=== PATIENT | male | born 1950 | race Caucasian/White ===

== ENCOUNTER → 2018-05-31 | Outpatient (CLI) | payer MEDICARE ==
[2018-05-31 13:33] LABS: Basophils # (A) 0.1 k/uL (0-0.2); Basophils % (A) 1 %; Eosinophils # (A) 0.1 k/uL (0-0.7); Eosinophils % (A) 2 %; HCT 47.2 % (39.0-53.0); HGB 15.2 gm/dL (13.0-17.5); Lymphocytes # (A) 1.4 k/uL (1.0-4.8); Lymphocytes % (A) 21 %; MCH 29.7 pg (25.0-35.0); MCHC 32.3 g/dL (31.0-37.0); Monocytes # (A) 0.3 k/uL (0-1.0); Monocytes % (A) 4 %; Neutrophils # (A) 4.8 k/uL (1.3-7.7); Neutrophils % (A) 70 %; Platelet Count 210 k/uL (150-450); RBC 5.13 m/uL (4.30-5.90); RDW 13.1 % (11.5-15.5); WBC 6.9 k/uL (3.8-10.6)
[2018-05-31 13:38] LABS: Appearance,Urine Clear (Clear); Bilirubin,Urine Negative (Negative); Blood,Urine Negative (Negative); Color,Urine Yellow; Glucose,Urine (UA) Negative (Negative); Ketones,Urine Negative (Negative); Leukocyte Esterase,Urine Negative (Negative); Nitrite,Urine Negative (Negative); Protein,Urine Negative (Negative); Specific Gravity,Urine 1.015 (1.001-1.035); Urobilinogen,Urine <2.0 mg/dL (<2.0)
[2018-05-31 13:57] LABS: Calcium 10.1 mg/dL (8.4-10.2); Potassium 5.4 mmol/L (3.5-5.1)
== END ==
LOC: LABPAT 12:01
PROVIDERS: ATTEND Urology
DX: Z01.812 Encounter for preprocedural laboratory examination (principal); N40.1 Benign prostatic hyperplasia with lower urinary tract symptoms; E78.5 Hyperlipidemia, unspecified; R35.0 Frequency of micturition; R31.29 Other microscopic hematuria; R53.83 Other fatigue
CPT/HCPCS: 36415; 80048; 81003; 85025; 87086

== ENCOUNTER 2018-06-07 08:00 | Inpatient (IN) | payer BC, MEDICARE ==
[2018-05-31 10:48] VITALS: BMI 28.5
--- NOTE | 2018-06-06 15:54 | P.GSHP ---
History of Present Illness H&P Date: 06/06/18 Pleasant 67 yo with chronic bph symptoms and both tamsulosin and finasterie with worsening of his LUTS. He had a trus identifying a 140 ml prostate He was offerd SPP vs greenlight laser turp He has chosen SPP and comes for this procedure The risks and complications have been discussed. - Constitutional Constitutional: Denies chills, Denies fever - EENT Eyes: denies blurred vision, denies pain Ears, nose, mouth and throat: Denies headache, Denies sore throat - Cardiovascular Cardiovascular: Denies chest pain, Denies shortness of breath - Respiratory Respiratory: Denies cough, Denies 7 - Gastrointestinal Gastrointestinal: Denies abdominal pain, Denies diarrhea, Denies nausea, Denies vomiting - Genitourinary (Female) Genitourinary: Denies dysuria, Denies hematuria - Genitourinary (Male) Genitourinary: Denies dysuria, Denies hematuria - Musculoskeletal Musculoskeletal: Denies myalgias - Integumentary Integumentary: Denies pruritus, Denies rash - Neurological Neurological: Denies numbness, Denies weakness - Psychiatric Psychiatric: Denies anxiety, Denies depression - Endocrine Endocrine: Denies fatigue, Denies weight change Past Medical History Past Medical History: GERD/Reflux, Prostate Disorder Additional Past Medical History / Comment(s): ENLARGED PROSTATE, kidney stones History of Any Multi-Drug Resistant Organisms: None Reported Past Surgical History: Joint Replacement, Orthopedic Surgery Additional Past Surgical History / Comment(s): RIGHT TOTAL KNEE, meniscus repair lt knee Past Anesthesia/Blood Transfusion Reactions: No Reported Reaction Smoking Status: Never smoker - Past Family History Father Family Medical History: Cancer Medications and Allergies Home Medications Medication Instructions Recorded Confirmed Type Tamsulosin HCl [Flomax] 0.4 mg PO DAILY 03/14/15 05/31/18 History Omeprazole [PriLOSEC] 20 mg PO AC-BRKFST 04/18/15 05/31/18 History Finasteride (Unknown Dose) 1 tab PO DAILY 05/31/18 05/31/18 History Ibuprofen [Motrin] 400 mg PO DAILY PRN 05/31/18 05/31/18 History Allergies Allergy/AdvReac Type Severity Reaction Status Date / Time metronidazole [From Flagyl] Allergy Rash/Hives Verified 05/31/18 10:41 Surgical - Exam - General well developed, well nourished - Eyes PERRL - ENT no hearing loss - Neck trachea midline - Respiratory normal expansion, normal respiratory effort - Cardiovascular Rhythm: regular - Abdomen Abdomen: soft, non tender - Genitourinary Prostate very large on digital exam but benign normal penis with no external lesions, testicles present - Integumentary no rash, no growths - Neurologic normal coordination - Musculoskeletal normal gait, normal posture - Psychiatric oriented to time, oriented to person, oriented to place, speech is normal, memory intact Assessment and Plan Assessment: Impression: BPH with obstruction, large prostate. Plan: Supra pubic prostatectomy
[~2018-06-07 08:00] MED LIST: ceFAZolin IN SWFI 2 GM/20 ML SYRINGE IVP ONE
[2018-06-07] MEDS ORDERED: LIDOCAINE 1% 20 ML VIAL (10MG/ML) FOR IV START INTRADERMA ONE (08:42)
[2018-06-07] MEDS ORDERED: LACTATED RINGERS 1,000 ML IV ONE ×3 (08:43→12:27)
[2018-06-07] MEDS ORDERED: ONDANSETRON 4 MG/2 ML VIAL IVP ONE ×2 (09:20→14:59)
[2018-06-07] MEDS ORDERED: DEXAMETHASONE SOD PHOS (MDV) 100 MG/10 ML VIAL IVP ONE (09:20)
[2018-06-07] MEDS ORDERED: ePHEDrine SULFATE/0.9% NACL/PF 50 MG/5 ML SYRINGE IV ONE (11:33)
[2018-06-07] MEDS ORDERED: fentaNYL (PF) 50 MCG/ML 2 ML AMP ONE (11:33)
[2018-06-07] MEDS ORDERED: MORPHINE SULFATE (PF) 0.3 MG/0.3 ML SYR ONE (11:33)
[2018-06-07] MEDS ORDERED: MIDAZOLAM 2 MG/2 ML VIAL ONE (11:33)
[2018-06-07] MEDS ORDERED: diphenhydrAMINE 25 MG CAP PO PRN (12:31)
[2018-06-07] MEDS ORDERED: ONDANSETRON 4 MG/2 ML VIAL IVP PRN (12:31)
[2018-06-07] MEDS ORDERED: HYDROmorphone 1 MG/ML 1 ML SYRINGE IVP PRN (12:31)
[2018-06-07] MEDS ORDERED: NALOXONE 0.4 MG/ML 1 ML VIAL IV PRN (12:31)
[2018-06-07] MEDS ORDERED: MORPHINE SULFATE 2 MG/ML SYRINGE IVP PRN (12:52)
--- NOTE | 2018-06-07 12:57 | P.OP ---
Date of Procedure: 06/07/18 Preoperative Diagnosis: BPH with obstruction, large prostate Postoperative Diagnosis: Same Procedure(s) Performed: Suprapubic prostatectomy Anesthesia: MAC, spinal Surgeon: Jose Roberto Bales Provider Service Representative #1: Adriano Elizabeth Estimated Blood Loss (ml): 200 Pathology: other (Prostate) Condition: stable Disposition: PACU Indications for Procedure: The patient is 67. He has marked urinary outlet obstructive symptoms. He has been on tamsulosin and finasteride. His prostate measures 140 mL. He wishes something further to be done. He's been given a variety of treatment options is chosen a suprapubic prostatectomy Description of Procedure: The patient is brought to the operating suite. He is given a spinal anesthetic as well as Duramorph. He is given IV sedation. He is prepped and draped sterilely. A midline suprapubic incision is made. The rectus fascia is opened in the midline. The prevesical space is developed. The bladder is opened in the midline. Urine is back to 80 from the bladder. The prostate is inspected and there is a very large intravesical portion. Ureteral orifices are identified. With the electrocautery I make a circumferential incision around the bladder neck. I then pass my finger into the urethra and cracked to the anterior commissure. Then enucleate out the prostate completely. I then reapproximate the bladder and bladder neck mucosa to the prostatic mucosa. I do a small amount of electrocautery cauterization. I introduced a 20-[place] Island[place] catheter with 30 mL balloon into the urethra. I put tension on the bladder neck. This controls the bleeding nicely. I then through separate stab incision place another 20-[place] Islander catheter through the abdominal wall into the bladder. This is a 5 mL balloon. The bladder is closed in 2 layers of 3 and 2- 0 Vicryl. The bladder irrigates freely. Edwin-Prescott drain is brought through separate stab incision. The rectus fascias closed with double-stranded #1 PDS. The skin is stapled. The procedure there is irrigation through the suprapubic tube out the urethral catheter. Blood loss is approximately 200 mL. The patient tolerated the procedure well and will be placed in the hospital postoperatively.
[2018-06-07] MEDS ORDERED: BACITRACIN OINT 1 EACH PACKET TOPICAL ONE (13:00)
[2018-06-07] MEDS ORDERED: BELLADONNA-OPIUM 16.2-60 MG 1 EACH SUPP RECTAL ONE (14:33)
[2018-06-07 15:05] LABS: Basophils % (A) 1 %; Eosinophils # (A) 0.1 k/uL (0-0.7); Eosinophils % (A) 1 %; HCT 42.5 % (39.0-53.0); HGB 13.7 gm/dL (13.0-17.5); Lymphocytes # (A) 0.5 k/uL (1.0-4.8); Lymphocytes % (A) 6 %; MCH 29.9 pg (25.0-35.0); MCHC 32.2 g/dL (31.0-37.0); MCV 92.7 fL (80.0-100.0); Mean Platelet Volume 7.9; Monocytes # (A) 0.1 k/uL (0-1.0); Monocytes % (A) 2 %; Neutrophils # (A) 7.7 k/uL (1.3-7.7); Neutrophils % (A) 91 %; Platelet Count 191 k/uL (150-450); RBC 4.59 m/uL (4.30-5.90); RDW 12.7 % (11.5-15.5); WBC 8.5 k/uL (3.8-10.6)
[2018-06-07] MEDS: BELLADONNA-OPIUM 16.2-60 MG 1 EACH SUPP RECTAL PRN (15:15)
[2018-06-07] MEDS ORDERED: [UNRECOGNIZED DRUG - OTHER] IRRIGATION SCH (16:45)
[2018-06-07] MEDS ORDERED: WATER IRRIGATION SCH (16:45)
[2018-06-07] MEDS: SODIUM CHLORIDE 0.9% IRRIGATIO 3,000 ML IRRIGATION SCH ×2 (18:26→19:41)
[2018-06-07] MEDS: DEXTROSE 5%-0.45% NACL 1,000 ML IV SCH (18:27)
[2018-06-07] MEDS: DOCUSATE 100 MG CAP PO SCH (21:13)
[2018-06-08] MEDS: SODIUM CHLORIDE 0.9% IRRIGATIO 3,000 ML IRRIGATION SCH ×3 (00:49→11:46)
[2018-06-08] MEDS: DEXTROSE 5%-0.45% NACL 1,000 ML IV SCH ×2 (04:20→06:02)
--- NOTE | 2018-06-08 06:38 | P.PN ---
Subjective Progress Note Date: 06/08/18 The patient is in his first postoperative day from a suprapubic prostatectomy. The urine is clear with a very slow bladder irrigation. I will discontinue the bladder irrigation. He is not having much pain. The wound is dry. I will place both catheters to drainage. He'll ambulate. I will place him on oral pain medication. Objective - Vital Signs Vital signs: Vital Signs Temp 98.5 F 06/07/18 23:32 Pulse 62 06/07/18 23:32 Resp 16 06/08/18 03:56 BP 103/61 06/07/18 23:32 Pulse Ox 96 06/07/18 23:32 Intake & Output 06/07/18 06/07/18 06/08/18 06:59 18:59 06:59 Intake Total 1500 600 Output Total 2850 8290 Balance -1350 -7690 Weight 87.543 kg Intake: IV 1500 Intake, IV Titration 600 Amount Dextrose 5%-0.45% NaCl 1, 600 000 ml @ 75 mls/hr IV . [id number] [facility] Rx#:[id number] Output: Drainage 550 440 Lower Abdomen 550 440 Urine 2100 7850 Uretheral (Vázquez) 2100 6050 Estimated Blood Loss 200 Other: Voiding Method Indwelling Catheter - Labs CBC & Chem 7: 06/07/18 15:00 Labs: Abnormal Lab Results - Last 24 Hours (Table) 06/07/18 Range/Units 15:00 Lymphocytes # 0.5 L (1.0-4.8) k/uL
[2018-06-08] MEDS: DOCUSATE 100 MG CAP PO SCH ×2 (11:46→20:13)
[2018-06-08] MEDS: PANTOPRAZOLE 40 MG TABLET PO SCH (11:46)
[2018-06-08] MEDS: ACETAMINOPHEN TAB 325 MG TAB PO PRN ×3 (11:48→22:25)
--- NOTE | 2018-06-08 13:09 | P.PN ---
Progress Note - Text Anesthesia POD 1. Patient is status post suprapubic prostatectomy under spinal anesthesia with intra-thecal preservative free morphine 300 g. Minimal pruritus, good post-op analgesia, and no headache or other complications.
[2018-06-08] MEDS: BELLADONNA-OPIUM 16.2-60 MG 1 EACH SUPP RECTAL PRN ×2 (18:19→23:59)
[2018-06-08] MEDS: ONDANSETRON 4 MG/2 ML VIAL IVP PRN (20:13)
[2018-06-08 20:35] LABS: HCT 35.1 % (39.0-53.0); HGB 11.8 gm/dL (13.0-17.5); MCH 30.7 pg (25.0-35.0); MCHC 33.5 g/dL (31.0-37.0); MCV 91.4 fL (80.0-100.0); Mean Platelet Volume 8.6; Platelet Count 161 k/uL (150-450); RBC 3.84 m/uL (4.30-5.90); WBC 9.5 k/uL (3.8-10.6)
[2018-06-09] MEDS: HYDROcodone/APAP 5-325MG 1 EACH TAB PO PRN ×4 (01:58→21:30)
[2018-06-09] MEDS: DEXTROSE 5%-0.45% NACL 1,000 ML IV SCH ×2 (05:40→18:19)
--- NOTE | 2018-06-09 07:04 | P.PN ---
Subjective Progress Note Date: 06/09/18 The patient is in his second postoperative day from a suprapubic prostatectomy. His vital signs are stable. He is having a moderate amount of bladder spasms. His urine output is good. The drainage through the Edwin-Prescott drain has decreased significantly. The wound looks good. He has a fair amount of abdominal gas as expected. I removed the urethral Vázquez this morning. He will continue with ambulation. I anticipate discharge sometime this weekend. Pathology report is benign. Objective - Vital Signs Vital signs: Vital Signs Temp 98.0 F 06/09/18 06:46 Pulse 51 L 06/09/18 06:46 Resp 16 06/09/18 06:46 BP 164/83 06/09/18 06:46 Pulse Ox 94 L 06/09/18 06:46 Intake & Output 06/08/18 06/09/18 06/09/18 18:59 06:59 18:59 Intake Total 1265 900 Output Total 2925 1215 Balance -1660 -315 Intake: Intake, IV Titration 525 900 Amount Dextrose 5%-0.45% NaCl 1, 525 900 000 ml @ 75 mls/hr IV . [id number] Rx#:[id number] Oral 740 Output: Drainage 125 15 Lower Abdomen 125 15 Urine 2800 1200 Uretheral (Vázquez) 2800 Other: Voiding Method Indwelling Catheter # Voids 2 - Labs CBC & Chem 7: 06/08/18 19:49 Labs: Abnormal Lab Results - Last 24 Hours (Table) 06/08/18 Range/Units 19:49 RBC 3.84 L (4.30-5.90) m/uL Hgb 11.8 L (13.0-17.5) gm/dL Hct 35.1 L (39.0-53.0) %
[2018-06-09] MEDS: DOCUSATE 100 MG CAP PO SCH ×2 (07:40→21:30)
[2018-06-09] MEDS: PANTOPRAZOLE 40 MG TABLET PO SCH (07:40)
[2018-06-09] MEDS: ONDANSETRON 4 MG/2 ML VIAL IVP PRN (20:36)
[2018-06-10] MEDS: HYDROcodone/APAP 5-325MG 1 EACH TAB PO PRN ×3 (01:45→17:09)
[2018-06-10] MEDS: DEXTROSE 5%-0.45% NACL 1,000 ML IV SCH ×2 (06:26→21:46)
[2018-06-10] MEDS: DOCUSATE 100 MG CAP PO SCH ×2 (10:05→21:46)
[2018-06-10] MEDS: PANTOPRAZOLE 40 MG TABLET PO SCH (10:06)
--- NOTE | 2018-06-10 10:12 | P.PN ---
Progress Note - Text Progress Note Date: 06/10/18 The patient is afebrile and normotensive. His degree of lower abdominal pain is decreased. His main complaint is irritation from the catheter and urgency. He did have increased blood in his urine yesterday and his urine remains blood- tinged but free of clots this morning. His incision appears to be healing well and he has minimal drainage from the Edwin-Prescott drain. His catheter will be irrigated to ensure that no clots remain in the bladder. If his urine clears he may be able to be discharged tomorrow.
[2018-06-10] MEDS: MAG HYDROX/AL HYDROX/SIMETH 30 ML CUP PO PRN (17:09)
[2018-06-11] MEDS: DEXTROSE 5%-0.45% NACL 1,000 ML IV SCH ×2 (08:06→23:56)
[2018-06-11] MEDS: PANTOPRAZOLE 40 MG TABLET PO SCH (08:07)
[2018-06-11] MEDS: DOCUSATE 100 MG CAP PO SCH ×2 (08:07→20:01)
[2018-06-11 08:23] VITALS: RESP 18
--- NOTE | 2018-06-11 10:12 | P.PN ---
Progress Note - Text Progress Note Date: 06/11/18 The patient is afebrile and normotensive. His appetite is improved and he is ambulating. He is passing gas. He had several small clots irrigated from his bladder yesterday afternoon and evening. His urine is blood-tinged this morning but no clots are present. His catheter will be irrigated periodically later this morning and he may be ready for discharge later today provided that his urine is acceptably clear. His Edwin-Prescott drain will be removed. If he is discharged he will go home with a suprapubic catheter and urethral catheter.
[2018-06-11] MEDS: HYDROcodone/APAP 5-325MG 1 EACH TAB PO PRN ×2 (12:17→21:39)
[2018-06-11] MEDS: OXYBUTYNIN CHLORIDE 5 MG TAB PO PRN ×2 (14:32→20:01)
[2018-06-11] MEDS: MAG HYDROX/AL HYDROX/SIMETH 30 ML CUP PO PRN (14:46)
[2018-06-11] MEDS: SODIUM CHLORIDE 0.9% IRRIGATIO 3,000 ML IRRIGATION SCH (16:01)
[2018-06-11 20:37] LABS: Glucose,Whole Blood 127 mg/dL (75-99)
--- NOTE | 2018-06-12 07:50 | P.DS ---
Providers Date of admission: 06/07/18 08:04 Attending physician: Jose Roberto Bales Primary care physician: [facility] Course: The patient was admitted the hospital 06/07/2018 for suprapubic prostatectomy. He underwent this without problems. He did have a moderate amount of bleeding and recovery. Subsided. Next several days the catheters been irrigated but he has done well. His hemoglobin was stable vital signs are stable. Further for discharge home. He'll be discharged home with suprapubic and urethral catheters. I will pull them out in the office. His pathology is benign his vital signs are stable as medicines on discharge are the same plus [place] and digital pain. His condition is good. Patient Condition at Discharge: Good Plan - Discharge Summary Discharge Rx Participant: Yes New Discharge Prescriptions: New HYDROcodone/APAP 5-325MG [[place] 5-325] 1 tab PO Q4HR PRN 3 Days #14 tab PRN Reason: Pain Oxybutynin Chloride [Ditropan] 5 mg PO TID PRN #20 tab PRN Reason: Pain No Action Tamsulosin HCl [Flomax] 0.4 mg PO DAILY Omeprazole [PriLOSEC] 20 mg PO AC-BRKFST Finasteride (Unknown Dose) 1 tab PO DAILY Ibuprofen [Motrin] 400 mg PO DAILY PRN PRN Reason: Pain Discharge Medication List Tamsulosin HCl [Flomax] 0.4 mg PO DAILY 03/14/15 [History] Omeprazole [PriLOSEC] 20 mg PO AC-BRKFST 04/18/15 [History] Finasteride (Unknown Dose) 1 tab PO DAILY 05/31/18 [History] Ibuprofen [Motrin] 400 mg PO DAILY PRN 05/31/18 [History] HYDROcodone/APAP 5-325MG [[place] 5-325] 1 tab PO Q4HR PRN 3 Days #14 tab [Rx] Oxybutynin Chloride [Ditropan] 5 mg PO TID PRN #20 tab 06/12/18 [Rx] Follow up Appointment(s)/Referral(s): [facility], [REFERRING] - Jose Roberto Bales MD [STAFF PHYSICIAN] - 06/16/18 8:00 am Activity/Diet/Wound Care/Special Instructions: Large home with both urethral and suprapubic tube catheters to drainage. Please provide overnight and leg bag for each. Discharge Disposition: HOME SELF-CARE
[2018-06-12] MEDS: DOCUSATE 100 MG CAP PO SCH (08:16)
[2018-06-12] MEDS: HYDROcodone/APAP 5-325MG 1 EACH TAB PO PRN (08:17)
[2018-06-12] MEDS: PANTOPRAZOLE 40 MG TABLET PO SCH (08:17)
[2018-06-12 09:35] VITALS: BP 157/89; TEMP 98.4
[2018-06-12 11:09] VITALS: PULSE 53
== END 2018-06-12 11:05 | disposition home health service (06) | DRG 707 ==
LOC: 2ORMAIN 08:04 → 4SSUR 13:25
PROVIDERS: ADMIT Urology; ATTEND Urology
PROC: 0T9B30Z Drainage of Bladder with Drainage Device, Percutaneous Approach (ICD-10-PCS; 2018-06-07)
PROC: 0VT00ZZ Resection of Prostate, Open Approach (ICD-10-PCS; principal; 2018-06-07 10:00)
DX: N40.1 Benign prostatic hyperplasia with lower urinary tract symptoms (principal); N13.8 Other obstructive and reflux uropathy; K21.9 Gastro-esophageal reflux disease without esophagitis; R31.9 Hematuria, unspecified; N32.89 Other specified disorders of bladder; Z79.899 Other long term (current) drug therapy; Z87.442 Personal history of urinary calculi; Z96.651 Presence of right artificial knee joint; Z88.8 Allergy status to other drugs, medicaments and biological substances; Z80.9 Family history of malignant neoplasm, unspecified
CPT/HCPCS: 85025; 85027; 86850; 86900; 86901; 88307

== ENCOUNTER → 2018-07-07 | Outpatient (CLI) | payer MEDICARE ==
--- NOTE | 2018-07-09 22:07 | MR ---
EXAMINATION TYPE: MR brain wo/w con DATE OF EXAM: 07/07/2018 COMPARISON: NONE HISTORY: Monocular esotropia, left eye TECHNIQUE: Multiplanar, multisequence images of the brain and brainstem is performed without and with IV contras t, utilizing 7.5 mL intravenous Gadavist . FINDINGS: Diffusion weighted images demonstrate no evidence of a recent infarct or other diffusion ab normality. There is no extra-axial fluid collection or significant white matter signal abnormality. There is ventricular and sulcal prominence consistent with mild diffuse age-related cerebral atrophy. Midline structures demonstrate normal morphology. The craniocervical junction appears within normal limits. Post contrast images demonstrate no abnormal enhancement. The dural venous sinuses appear pa tent. Mild to moderate lobulated mucosal thickening inferior right maxillary sinus is present. There is mild to minimal mucosal thickening left maxillary sinus with air-fluid level. Nasal septum is clarissa ated to right of midline. Mild mucosal thickening ethmoid sinuses bilaterally is seen. The globes are intact bilaterally. IMPRESSION: Possible acute on chronic paranasal sinus disease as detailed above. Mild diffuse age-rel ated cerebral atrophy. No suspicious findings seen to account for patient's clinical symptoms.
== END | disposition home or self-care (01) ==
LOC: RADMRIMAIN 08:13
PROVIDERS: ATTEND Ophthalmology
DX: G31.1 Senile degeneration of brain, not elsewhere classified (principal); H50.012 Monocular esotropia, left eye
CPT/HCPCS: 70553; A9585

== ENCOUNTER 2022-11-19 10:50 | Day surgery (SDC) | payer MEDICARE ==
[~2022-11-19 10:50] MED LIST changes: +LACTATED RINGERS 1,000 ML IV SCH; -ceFAZolin IN SWFI 2 GM/20 ML SYRINGE IVP ONE
[2022-11-19 11:27] VITALS: TEMP 98.1
[2022-11-19] MEDS ORDERED: PROPOFOL 10 MG/ML 20 ML VIAL IV ONE (12:11)
--- NOTE | 2022-11-19 12:45 | P.PCN ---
Date of Procedure: 11/19/22 Procedure(s) Performed: BRIEF HISTORY: Patient is a 72-year-old pleasant White male scheduled for an elective colonoscopy as a part of evaluation of recent episode of acute sigmoid diverticulitis for which she was treated with antibiotics. Last coloscopy was in 2014. PROCEDURE PERFORMED: Colonoscopy. PREOPERATIVE DIAGNOSIS: Recent episode of acute sigmoid diverticular colitis. IV sedation per Anesthesia. PROCEDURE: After informed consent was obtained, the patient, was brought into the endoscopy unit. IV sedation was administered by Anesthesia under continuous monitoring. Digital rectal examination was normal. Initially the Olympus CF-160 flexible video colonoscope was then inserted in the rectum, gradually advanced into the sigmoid: Further advancement was not possible because of acute angle duration and moderate diverticulosis. At this time the pediatric colonoscopy was in his rectum and gradually advanced into the sigmoid colon and once again I could not advance the scope any further. At this time an upper endoscopy was used and with gentle manipulation the scope was advanced into the right colon with the part of the cecum was visualized. Despite multiple attempts I was not able to advance the scope into the base of the cecum. Careful examination was performed as the scope was gradually being withdrawn. Ileocecal valve was visualized and appeared normal. Prep was excellent. Mucosa of the cecum, ascending colon, appeared normal. In the transverse colon there was a 3 mm polyp removed by cold biopsy. Rest of the transverse colon, descending colon, sigmoid colon, and rectum appeared normal. Moderate sigmoid diverticulosis seen Retroflexion was performed in the rectum and no lesions were seen. The patient tolerated the procedure well. IMPRESSION: Moderate sigmoid reticulosis 3 mm polyp in the transverse colon status post cold biopsy RECOMMENDATIONS: Findings of this examination were discussed with the patient as well as his family.. He was advised to be a high-fiber diet and take fiber supplements a regular basis. If the biopsy results adenoma he can have a repeat colonoscopy in 5 years.
[2022-11-19] MEDS ORDERED: hydrALAZINE HCL 20 MG/ML 1 ML VIAL ONE (13:55)
[2022-11-19] MEDS ORDERED: hydrALAZINE HCL 20 MG/ML 1 ML VIAL IVP ONE ×2 (13:58→14:25)
[2022-11-19 14:37] VITALS: BP 157/83; PULSE 80; RESP 18
== END 2022-11-19 15:00 | disposition home or self-care (01) ==
LOC: ORWHC2ENDO 10:50
PROVIDERS: ATTEND Internal Medicine Gastroenterology
DX: D12.3 Benign neoplasm of transverse colon (principal); K57.30 Diverticulosis of large intestine without perforation or abscess without bleeding; N40.0 Benign prostatic hyperplasia without lower urinary tract symptoms; K21.9 Gastro-esophageal reflux disease without esophagitis; Z79.899 Other long term (current) drug therapy; Z88.8 Allergy status to other drugs, medicaments and biological substances
CPT/HCPCS: 88305; 45380; J0360; J2704